=== PATIENT | female | born 1960 | race Two or more races ===

== ENCOUNTER 2021-12-02 11:17 | Emergency (ER) | payer BC, OTHER ==
[~2021-12-02] VITALS: Ht 162.6 cm; Wt 81.6 kg
[2021-12-02] MEDS ORDERED: ONDANSETRON HCL 4 MG/2 ML VIAL IV ONE (11:45)
[2021-12-02] MEDS ORDERED: MORPHINE SULFATE 4 MG/ML SYR/VIAL IV ONE (11:45)
[2021-12-02] MEDS ORDERED: SODIUM CHLORIDE 0.9% 1,000 ML IV ONE ×2 (11:45)
[2021-12-02 12:33] LABS: Basophils # (auto) 0 10 ^3/uL (0-0.2); Eosinophils # (auto) 0 10 ^3/uL (0-0.8); Eosinophils % (auto) 0.3 % (0.0-7.0); Mean Corpuscular Volume 76.6 fL (80.0-100.0); Monocytes # (auto) 0.6 10 ^3/uL (0-1.3)
[2021-12-02 12:35] LABS: Basophils % (auto) 0.2 % (0.0-2.0); Hematocrit 38.1 % (36.0-46.0); Hemoglobin 12.5 g/dL (12.2-16.2); Lymphocytes # (auto) 1.3 10 ^3/uL (0.4-5.4); Mean Corpuscular Hemoglobin 25.1 pg (28.0-32.0); Mean Corpuscular Hgb Conc. 32.8 g/dL (32.0-36.0); Monocytes % (auto) 9.4 % (0.0-12.0); Neutrophils # (auto) 4.8 10 ^3/uL (1.6-8.6); Neutrophils % (auto) 71.1 % (37.0-80.0); Red Blood Cells 4.97 10^6/uL (4.0-5.20); Red Cell Distribution Width 16.7 % (11.8-14.3); White Blood Cell 6.8 10^3/uL (4.4-10.8)
[2021-12-02 12:49] LABS: Potassium 3.3 mmol/L (3.5-5.1)
[2021-12-02 12:56] LABS: Albumin 4.2 g/dL (3.4-5.0); BUN/Creatinine Ratio 23.9; Calcium 9.1 mg/dL (8.5-10.1)
[2021-12-02 12:59] LABS: Bilirubin, Total 0.4 mg/dL (0.2-1.0); Total Protein 7.9 g/dL (6.4-8.2)
[2021-12-02] MEDS ORDERED: POTASSIUM EFFERVESENT TAB 25 MEQ PO ONE (14:45)
[2021-12-02 15:26] VITALS: BP 173/80
== END 2021-12-02 15:35 | disposition home or self-care (01) ==
LOC: ER 11:17 → EDBD 11:17 → ER 15:35
DX: E87.6 Hypokalemia (principal); K80.80 Other cholelithiasis without obstruction; R10.12 Left upper quadrant pain; R11.2 Nausea with vomiting, unspecified; I10 Essential (primary) hypertension; E11.9 Type 2 diabetes mellitus without complications; Z88.8 Allergy status to other drugs, medicaments and biological substances
CPT/HCPCS: 36415; 71045; 74176; 80053; 83690; 85025; 93005; 96361; 96374; 96375; 99285; J2270; J2405; J7030

== ENCOUNTER 2022-04-03 12:00 | Emergency (ER) | payer OTHER, MEDICAID ==
[~2022-04-03] VITALS: Ht 160 cm; Wt 4.8 kg
[2022-04-03] MEDS ORDERED: ONDANSETRON HCL 4 MG/2 ML VIAL IV ONE (13:15)
[2022-04-03] MEDS ORDERED: MORPHINE SULFATE 4 MG/ML SYR/VIAL IV ONE (13:15)
[2022-04-03 14:02] VITALS: BP 115/60
[2022-04-03] MEDS ORDERED: LIDO1PAD55 EX (15:27)
[2022-04-03] MEDS ORDERED: HYDR-4902 PO (15:27)
== END 2022-04-03 16:01 | disposition home or self-care (01) ==
LOC: EDBD 12:00 → ER 12:00
DX: M25.552 Pain in left hip (principal); R51.9 Headache, unspecified; E11.9 Type 2 diabetes mellitus without complications; I10 Essential (primary) hypertension; Z88.6 Allergy status to analgesic agent; W18.09XA Striking against other object with subsequent fall, initial encounter; Y93.89 Activity, other specified; Y92.89 Other specified places as the place of occurrence of the external cause; Y99.8 Other external cause status
CPT/HCPCS: 70450; 72125; 72220; 73502; 93005; 96374; 96375; 99284; J2270; J2405